=== PATIENT | male | born 1950 | race Caucasian/White ===

== ENCOUNTER 2017-08-03 12:46 | Emergency (ER) | payer OTHER, MEDICARE ==
--- NOTE | 2017-08-03 14:09 | EDM.PDOC ---
ED HPI GENERAL MEDICAL PROBLEM - General Chief Complaint: Upper Extremity Injury/Pain Stated Complaint: FELL AT HOME Time Seen by Provider: 08/03/17 13:24 Source of Information: Reports: Patient History Limitations: Reports: No Limitations - History of Present Illness INITIAL COMMENTS - FREE TEXT/NARRATIVE: History of present illness: Patient slipped on the ice this morning and landed on his right shoulder he complains of pain with anterior movement and lifting his right upper extremity. Denies Any numbness or tingling, he is able to move his arm posteriorly without difficulty or limitation Review of systems: As per history of present illness and below otherwise all systems reviewed and negative. Past medical history: As per history of present illness and as reviewed below otherwise noncontributory. Surgical history: As per history of present illness and as reviewed below otherwise noncontributory. Social history: No reported history of drug or alcohol abuse. Family history: As per history of present illness and as reviewed below otherwise noncontributory. Physical exam: General: Well developed, well nourished in NAD HEENT: Atraumatic, normocephalic, pupils reactive, negative for conjunctival pallor or scleral icterus, mucous membranes moist, throat clear, neck supple and no vertebral step-offs, nontender, trachea midline. Lungs: Clear to auscultation, breath sounds equal bilaterally, chest nontender. Heart: S1S2, regular, negative for clicks, rubs, or JVD. Abdomen: Soft, nondistended, nontender. Negative for masses or hepatosplenomegaly. Negative for costovertebral tenderness. Pelvis: Stable nontender. Genitourinary: Deferred. Rectal: Deferred. Extremities: No clavicular deformity or tenderness, Atraumatic, pain negative for cords or calf pain. Neurovascular unremarkable. Neuro: Awake, alert, oriented. Cranial nerves II through XII unremarkable. Cerebellum unremarkable. Motor and sensory unremarkable throughout. Exam nonfocal. Diagnostics: []X-ray shoulder negative for fracture dislocation positive for arthritis Therapeutics: []Patient declined pain meds Impression: []Right shoulder sprain Plan: []Arm sling ice, ibuprofen follow-up with orthopedics Definitive disposition and diagnosis as appropriate pending reevaluation and review of above. - Related Data Allergies Allergy/AdvReac Type Severity Reaction Status Date / Time No Known Allergies Allergy Verified 08/03/17 13:34 Home Meds: Home Meds Tamsulosin HCl 0.4 mg PO DAILY 08/03/17 [History] atorvaSTATin Calcium [Atorvastatin Calcium] 40 mg PO DAILY 08/03/17 [History] Past Medical History Cardiovascular History: Reports: High Cholesterol, Hypertension Genitourinary History: Reports: Prostate Disorder Social & Family History - Family History Family Medical History: Noncontributory - Tobacco Use Smoking Status *Q: Never Smoker - Caffeine Use Caffeine Use: Reports: Coffee - Recreational Drug Use Recreational Drug Use: No Review of Systems - Review of Systems Review Of Systems: See Below (See history of present illness) ED EXAM, GENERAL - Physical Exam Exam: See Below (See history of present illness) Course - Vital Signs Last Recorded V/S: Last Vital Signs Temp 98.1 F 08/03/17 13:36 Pulse 89 08/03/17 13:36 Resp 14 08/03/17 13:36 BP 135/113 H 08/03/17 13:36 Pulse Ox 95 08/03/17 13:36 Departure - Departure Time of Disposition: 14:14 Disposition: Home, Self-Care 01 Condition: Good Clinical Impression: Sprain of right shoulder Qualifiers: Encounter type: initial encounter Shoulder sprain type: unspecified sprain Qualified Code(s): S43.401A - Unspecified sprain of right shoulder joint, initial encounter - Discharge Information Referrals: PCP,None [Primary Care Provider] - Forms: ED Department Discharge Additional Instructions: The following information is given to patients seen in the emergency department who are being discharged to home. This information is to outline your options for follow-up care. We provide all patients seen in our emergency department with a follow-up referral. The need for follow-up, as well as the timing and circumstances, are variable depending upon the specifics of your emergency department visit. If you don't have a primary care physician on staff, we will provide you with a referral. We always advise you to contact your personal physician following an emergency department visit to inform them of the circumstance of the visit and for follow-up with them and/or the need for any referrals to a consulting specialist. The emergency department will also refer you to a specialist when appropriate. This referral assures that you have the opportunity for follow-up care with a specialist. All of these measure are taken in an effort to provide you with optimal care, which includes your follow-up. Under all circumstances we always encourage you to contact your private physician who remains a resource for coordinating your care. When calling for follow-up care, please make the office aware that this follow-up is from your recent emergency room visit. If for any reason you are refused follow-up, please contact the [facility] Emergency Department at and asked to speak to the emergency department charge nurse. Ice, Motrin, arm sling for comfort follow-up with orthopedic return if symptoms worsen or change [facility] [address] [place] [address], [address] [place] [address]
--- NOTE | 2017-08-03 14:12 | CR ---
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 No definite fracture or acute osseous abnormality. Bone mineralization appears normal.
== END 2017-08-03 14:24 | disposition home or self-care (01) ==
LOC: MW.ED 12:46
DX: S43.401A Unspecified sprain of right shoulder joint, initial encounter (principal); I10 Essential (primary) hypertension; E78.00 Pure hypercholesterolemia, unspecified; Z79.899 Other long term (current) drug therapy; W00.0XXA Fall on same level due to ice and snow, initial encounter; Y92.009 Unspecified place in unspecified non-institutional (private) residence as the place of occurrence of the external cause
CPT/HCPCS: 73030-26-RT; 73030-RT; 99283

== ENCOUNTER 2017-09-22 10:00 | Day surgery (SDC) | payer OTHER, MEDICARE ==
[~2017-09-22 10:00] MED LIST: Lactated Ringers 1,000 ML IV SCH; Lidocaine 2% 5 ML SDV ONE; Ondansetron 4 MG/2 ML SDV ONE; Propofol 200 MG/20 ML SDV ONE; fentaNYL 100 MCG/2 ML SDV ONE
--- NOTE | 2017-09-22 10:29 | PCM.PREANE ---
Preanesthetic Assessment - Anesthesia/Transfusion/Family Hx Anesthesia History: Prior Anesthesia Without Reaction Family History of Anesthesia Reaction: No Transfusion History: No Prior Transfusion(s) Intubation History: Unknown - Review of Systems General: No Symptoms Pulmonary: No Symptoms Cardiovascular: No Symptoms Gastrointestinal: Other (h/o colon cancer witj resection and radiation ') Neurological: No Symptoms Other: Reports: None - Physical Assessment O2 Sat by Pulse Oximetry: 98 Respiratory Rate: 16 Vital Signs: Last Vital Signs Temp 36.3 C 09/22/17 10:06 Pulse 64 09/22/17 10:06 Resp 16 09/22/17 10:06 BP 170/88 H 09/22/17 10:06 Pulse Ox 98 09/22/17 10:06 Height: 1.63 m Weight: 88.451 kg ASA Class: 2 Mental Status: Alert & Oriented x3 Airway Class: Mallampati = 2 Dentition: Reports: Normal Dentition Thyro-Mental Finger Breadths: 2 Mouth Opening Finger Breadths: 3 ROM/Head Extension: Limited/Partial Lungs: Clear to Auscultation, Normal Respiratory Effort Cardiovascular: Regular Rate, Regular Rhythm - Allergies Allergies/Adverse Reactions: Allergies Allergy/AdvReac Type Severity Reaction Status Date / Time pravastatin Allergy Dizziness Verified 09/19/17 13:06 - Blood Blood Available: No - Anesthesia Plan Pre-Op Medication Ordered: None - Acknowledgements Anesthesia Type Planned: MAC Pt an Appropriate Candidate for the Planned Anesthesia: Yes Alternatives and Risks of Anesthesia Discussed w Pt/Guardian: Yes Pt/Guardian Understands and Agrees with Anesthesia Plan: Yes PreAnesthesia Questionnaire HEENT History: Reports: Other (See Below) Other HEENT History: wears glasses Cardiovascular History: Reports: High Cholesterol, Hypertension Gastrointestinal History: Reports: Colon Polyp Genitourinary History: Reports: Prostate Disorder Musculoskeletal History: Reports: Other (See Below) (rt. shoulder pain) Endocrine/Metabolic History: Reports: Obesity/BMI 30+ Oncologic (Cancer) History: Reports: Colon - Past Surgical History Head Surgeries/Procedures: Reports: None GI Surgical History: Reports: Colon (2012 resection with radiation), Colonoscopy Other GI Surgeries/Procedures: colon resection for colon cancer - SUBSTANCE USE Smoking Status *Q: Former Smoker Days Per Week of Alcohol Use: 7 Number of Drinks Per Day: 1 Total Drinks Per Week: 7 Recreational Drug Use History: No - HOME MEDS Home Medications: Home Meds Tamsulosin HCl 0.4 mg PO DAILY 08/03/17 [History] atorvaSTATin Calcium [Atorvastatin Calcium] 20 mg PO BEDTIME 08/03/17 [History] Aspirin [[place] Aspirin] 81 mg PO DAILY 09/19/17 [History] Flaxseed Oil [Flax Oil] 1,000 mg PO DAILY 09/19/17 [History] Lisinopril 0.5 tab PO DAILY 09/19/17 [History] Multivitamin [Multivitamins] 1 tab PO DAILY 09/19/17 [History] Sildenafil [Viagra] 1 tab PO ASDIRECTED PRN 09/19/17 [History] - CURRENT (IN HOUSE) MEDS Current Meds: Current Medications Lactated Ringer's (Ringers, Lactated) 1,000 mls @ 125 mls/hr IV ASDIRECTED BLANCHE Last Admin: 09/22/17 10:11 Dose: 125 mls/hr Discontinued Medications Fentanyl (Sublimaze) Confirm Administered Dose 100 mcg .ROUTE .STK-MED ONE Stop: 09/22/17 08:29 Lidocaine (Xylocaine-Mpf 2%) Confirm Administered Dose 5 ml .ROUTE .STK-MED ONE Stop: 09/22/17 08:28 Ondansetron HCl (Zofran) Confirm Administered Dose 4 mg .ROUTE .STK-MED ONE Stop: 09/22/17 09:30 Propofol (Diprivan 20 Ml) Confirm Administered Dose 400 mg .ROUTE .STK-MED ONE Stop: 09/22/17 08:28
[2017-09-22] MEDS ORDERED: Lactated Ringers 1,000 ML IV SCH (12:30)
--- NOTE | 2017-09-22 12:34 | PCM.OPNOTE ---
- General Post-Op/Procedure Note Date of Surgery/Procedure: 09/22/17 Operative Procedure(s): Colonoscopy Pre Op Diagnosis: Personal history of rectal cancer Post-Op Diagnosis: No evidence of recurrent neoplasm. Sigmoid diverticulosis. Anesthesia Technique: MAC (ASA II) Primary Surgeon: Santos Aleman Condition: Good Free Text/Narrative:: Dictation [id number] CPT CODE 14515
--- NOTE | 2017-09-22 13:03 | PCM48HPAN ---
Post Anesthesia Note - EVALUATION WITHIN 48HRS OF ANESTHETIC Vital Signs in Normal Range: Yes Patient Participated in Evaluation: Yes Respiratory Function Stable: Yes Airway Patent: Yes Cardiovascular Function Stable: Yes Hydration Status Stable: Yes Pain Control Satisfactory: Yes Nausea and Vomiting Control Satisfactory: Yes Mental Status Recovered: Yes
--- NOTE | 2017-09-22 13:03 | PCM.POSTAN ---
POST ANESTHESIA ASSESSMENT - MENTAL STATUS Mental Status: Alert, Oriented - RESPIRATORY Respiratory Status: Respiratory Rate WNL, Airway Patent, O2 Saturation Stable - CARDIOVASCULAR CV Status: Pulse Rate WNL, Blood Pressure Stable - GASTROINTESTINAL GI Status: No Symptoms - POST OP HYDRATION Hydration Status: Adequate & Stable
--- NOTE | 2017-09-25 08:35 | OR ---
SURGEON: Santos Aleman M.D. DATE OF PROCEDURE: 09/22/2017 OPERATION PERFORMED: Colonoscopy. ANESTHESIA: MAC. ASA CLASSIFICATION: II. PREOPERATIVE DIAGNOSIS: Personal history of rectal cancer. POSTOPERATIVE DIAGNOSIS: Sigmoid diverticulosis. DESCRIPTION OF PROCEDURE: The patient was taken to the endoscopy room, positioned on the endoscopy table in the left lateral decubitus position. Time-out was called for appropriate identification of the patient and procedure. Monitored anesthesia care was provided. The colonoscope was inserted into the rectum and advanced without difficulty to the cecum, which was identified by internal landmarks and external pressure. The colonoscope was retroflexed in the cecum to visualize the ascending colon from below, then straightened and slowly withdrawn. The cecum, ascending colon, hepatic flexure, transverse colon, and splenic flexure showed no tumors, polyps, diverticula, or angiodysplastic changes. There was no evidence of recurrent malignant disease. The sigmoid colon demonstrates numerous diverticula. No stricture, spasm, or bleeding was noted. The anastomosis was easily seen as the scope was withdrawn. The anastomosis was widely patent and shows no evidence of recurrent disease. The colonoscope was withdrawn to the distal rectum and retroflexed to visualize the anal orifice from above. No tumors, polyps, or acute hemorrhoidal changes were noted. The colonoscope was then straightened, the rectum aspirated, and the colonoscope removed. The patient tolerated the procedure well and was taken to recovery room in satisfactory condition. MANDO RIVERS /[id number]
== END 2017-09-22 13:06 | disposition home or self-care (01) ==
LOC: MW.SDS 10:00
PROVIDERS: ATTEND Surgery
DX: Z12.11 Encounter for screening for malignant neoplasm of colon (principal); I10 Essential (primary) hypertension; N42.9 Disorder of prostate, unspecified; E78.00 Pure hypercholesterolemia, unspecified; E66.9 Obesity, unspecified; Z68.33 Body mass index [BMI] 33.0-33.9, adult; Z92.21 Personal history of antineoplastic chemotherapy; Z88.8 Allergy status to other drugs, medicaments and biological substances; Z79.82 Long term (current) use of aspirin; Z79.899 Other long term (current) drug therapy; Z86.010 Personal history of colon polyps; Z87.891 Personal history of nicotine dependence; Z90.49 Acquired absence of other specified parts of digestive tract; Z85.038 Personal history of other malignant neoplasm of large intestine
CPT/HCPCS: 45378; J3010; J7120; 00812; J2405; J2704

== ENCOUNTER 2019-09-08 19:07 | Observation (INO) | payer OTHER, MEDICARE ==
[2019-09-08 20:03] LABS: BLOOD UREA NITROGEN,BUN 19 mg/dL (7.0-18.0); CARBON DIOXIDE,CO2 23.2 mmol/L (21.0-32.0); CHLORIDE,CL 101 mmol/L (98-107); GLUCOSE RANDOM 97 mg/dL (74-106); POTASSIUM,K 3.5 mmol/L (3.5-5.1); SODIUM,NA 138 mmol/L (136-148)
[2019-09-08] MEDS ORDERED: Sodium Chloride 0.9% 1,000 ML IV ONE (20:51)
--- NOTE | 2019-09-08 21:59 | EDM.PDOC ---
ED HPI GENERAL MEDICAL PROBLEM - General Chief Complaint: ENT Problem Stated Complaint: NOSE BLEED Time Seen by Provider: 09/08/19 19:14 - History of Present Illness INITIAL COMMENTS - FREE TEXT/NARRATIVE: HPI 69-year-old male takes aspirin daily presents for evaluation of right nare spontaneous epistaxis. Denies similar prior symptoms, no nasal trauma. Bleeding is been present for ~20 minutes. ROS with no recent constitutional symptoms. Exam HR 114, RR 18, BP 156 and 93, T 36.6C, SaO2 95% on room air. Gen: Pleasant, non-toxic appearing, resting comfortably HEENT: active bleeding from right nare, no bleeding from left naris appreciated , otherwise NC, AT, PEERL, EOMI. Resp: Clear to auscultation bilaterally. Unlabored respirations with a normal work of breathing. Card: Regular rate and rhythm. Extremities warm and well perfused. GI: Non-distended. : Deferred MSK: No visible deformities, strength and tone without visually appreciable deficit. Neuro: alert and oriented 3, no facial asymmetry, vision and hearing WNL. Heme/Lymph: Deferred Skin: Normal color with no visible lesions (other than noted above). Psych: Mood and affect appropriate. Labs: WBC 11.6, PLT 334, HB 15.8, INR 0.95, PTT 26.8, sodium 138, potassium 3.5. MDM Previous chart, nursing note, and vitals reviewed. A: 69-year-old male takes aspirin daily presents for evaluation of right nare spontaneous epistaxis. DDx & Evaluation: patient with notable ongoing right nare active bleeding, appears to be anterior. Clot was expressed by patient, nare was irrigated with 20 mL NS and a 5.5 cm anterior Rhino Rocket was placed with hemostasis. Patient with persistent tachycardia (initially attributed to agitation), remained present with rest. Labs ordered. 1 L NS given. Approximately 20 minutes later the patient had sudden onset left nare bleeding. Clot was expressed by patient, nare irrigated with 20 ML NS and a 5.5 cm anterior Rhino Rocket soaked in TXA was placed with hemostasis. Approximately 20 minutes after her left nare plaque , repeat examination, no further bleeding. Patient given a 2nd L IV fluids and admitted for observation. No identifiable posterior bleeding. No identifiable coagulopathies. Impression: bilateral epistaxis, tachycardia. - Related Data Allergies Allergy/AdvReac Type Severity Reaction Status Date / Time pravastatin Allergy Dizziness Verified 09/08/19 19:15 Home Meds: Home Meds Tamsulosin HCl 0.4 mg PO DAILY 08/03/17 [History] atorvaSTATin Calcium [Atorvastatin Calcium] 20 mg PO BEDTIME 08/03/17 [History] Aspirin [[place] Aspirin EC] 81 mg PO DAILY 09/19/17 [History] Lisinopril 0.5 tab PO DAILY 09/19/17 [History] Multivitamin [Multivitamins] 1 tab PO DAILY 09/19/17 [History] Sildenafil [Viagra] 1 tab PO ASDIRECTED PRN 09/19/17 [History] Past Medical History HEENT History: Reports: Other (See Below) Other HEENT History: wears glasses Cardiovascular History: Reports: High Cholesterol, Hypertension Gastrointestinal History: Reports: Colon Polyp Genitourinary History: Reports: Prostate Disorder Musculoskeletal History: Reports: Other (See Below) Endocrine/Metabolic History: Reports: Obesity/BMI 30+ Oncologic (Cancer) History: Reports: Colon - Infectious Disease History Infectious Disease History: Reports: None - Past Surgical History Head Surgeries/Procedures: Reports: None GI Surgical History: Reports: Colon, Colonoscopy Other GI Surgeries/Procedures: colon resection for colon cancer Social & Family History - Family History Family Medical History: Noncontributory - Tobacco Use Smoking Status *Q: Never Smoker - Caffeine Use Caffeine Use: Reports: Coffee - Recreational Drug Use Recreational Drug Use: No ED ROS GENERAL - Review of Systems Review Of Systems: See Below ED EXAM, GENERAL - Physical Exam Exam: See Below Course - Vital Signs Last Recorded V/S: Last Vital Signs Temp 36.6 C 09/08/19 19:17 Pulse 111 H 09/08/19 21:33 Resp 16 09/08/19 21:33 BP 132/83 09/08/19 21:33 Pulse Ox 97 09/08/19 21:33 - Orders/Labs/Meds Orders: Active Orders 24 hr Category Date Time Status Sodium Chloride 0.9% [Normal Saline] 1,000 ml Med 09/08/19 21:57 Ordered IV .Bolus Tranexamic Acid [Cyklokapron] Med 09/08/19 19:39 Once 1,000 mg .XX ONETIME ONE Medication Orders Sodium Chloride (Normal Saline) 1,000 mls @ 1,000 mls/hr IV .Bolus ONE Stop: 09/08/19 22:56 Tranexamic Acid (Cyklokapron) 1,000 mg .XX ONETIME ONE Stop: 09/09/19 03:48 Last Admin: 09/08/19 20:20 Dose: 1,000 mg Labs: Laboratory Tests 09/08/19 09/08/19 09/08/19 Range/Units 19:20 19:20 19:20 WBC 11.61 H (4.0-11.0) K/uL RBC 4.79 (4.50-5.90) M/uL Hgb 15.8 (13.0-17.0) g/dL Hct 45.2 (38.0-50.0) % MCV 94.4 (80.0-98.0) fL MCH 33.0 H (27.0-32.0) pg MCHC 35.0 (31.0-37.0) g/dL RDW Std Deviation 45.3 (28.0-62.0) fl RDW Coeff of Jose 13 (11.0-15.0) % Plt Count 334 (150-400) K/uL MPV 9.40 (7.40-12.00) fL Neut % (Auto) 48.2 (48.0-80.0) % Lymph % (Auto) 37.6 (16.0-40.0) % [place] % (Auto) 10.6 (0.0-15.0) % Eos % (Auto) 3.3 (0.0-7.0) % Baso % (Auto) 0.3 (0.0-1.5) % Neut # (Auto) 5.6 (1.4-5.7) K/uL Lymph # (Auto) 4.4 H (0.6-2.4) K/uL [place] # (Auto) 1.2 H (0.0-0.8) K/uL Eos # (Auto) 0.4 (0.0-0.7) K/uL Baso # (Auto) 0.0 (0.0-0.1) K/uL Nucleated RBC % 0.0 /100WBC Nucleated RBCs # 0 K/uL INR 0.95 APTT 26.8 (18.6-31.3) SEC Sodium 138 (136-148) mmol/L Potassium 3.5 (3.5-5.1) mmol/L Chloride 101 (98-107) mmol/L Carbon Dioxide 23.2 (21.0-32.0) mmol/L BUN 19 H (7.0-18.0) mg/dL Creatinine 0.9 (0.8-1.3) mg/dL Est Cr Clr Drug Dosing 63.04 mL/min Estimated GFR (MDRD) > 60.0 ml/min Glucose 97 (74-106) mg/dL Calcium 8.9 (8.5-10.1) mg/dL Blood Type Antibody Screen 09/08/19 Range/Units 19:59 WBC (4.0-11.0) K/uL RBC (4.50-5.90) M/uL Hgb (13.0-17.0) g/dL Hct (38.0-50.0) % MCV (80.0-98.0) fL MCH (27.0-32.0) pg MCHC (31.0-37.0) g/dL RDW Std Deviation (28.0-62.0) fl RDW Coeff of Jose (11.0-15.0) % Plt Count (150-400) K/uL MPV (7.40-12.00) fL Neut % (Auto) (48.0-80.0) % Lymph % (Auto) (16.0-40.0) % [place] % (Auto) (0.0-15.0) % Eos % (Auto) (0.0-7.0) % Baso % (Auto) (0.0-1.5) % Neut # (Auto) (1.4-5.7) K/uL Lymph # (Auto) (0.6-2.4) K/uL [place] # (Auto) (0.0-0.8) K/uL Eos # (Auto) (0.0-0.7) K/uL Baso # (Auto) (0.0-0.1) K/uL Nucleated RBC % /100WBC Nucleated RBCs # K/uL INR APTT (18.6-31.3) SEC Sodium (136-148) mmol/L Potassium (3.5-5.1) mmol/L Chloride (98-107) mmol/L Carbon Dioxide (21.0-32.0) mmol/L BUN (7.0-18.0) mg/dL Creatinine (0.8-1.3) mg/dL Est Cr Clr Drug Dosing mL/min Estimated GFR (MDRD) ml/min Glucose (74-106) mg/dL Calcium (8.5-10.1) mg/dL Blood Type A POSITIVE Antibody Screen NEGATIVE Meds: Medications Generic Name Dose Route Start Last Admin Trade Name Freq PRN Reason Stop Dose Admin Sodium Chloride 1,000 mls @ 1,000 mls/hr 09/08/19 21:57 Normal Saline IV 09/08/19 22:56 .Bolus ONE Tranexamic Acid 1,000 mg 09/08/19 19:39 09/08/19 20:20 Cyklokapron .XX 09/09/19 03:48 1,000 mg ONETIME ONE Administration Discontinued Medications Generic Name Dose Route Start Last Admin Trade Name Freq PRN Reason Stop Dose Admin Sodium Chloride 1,000 mls @ 1,000 mls/hr 09/08/19 20:51 09/08/19 20:55 Normal Saline IV 09/08/19 21:50 1,000 mls/hr .Bolus ONE Administration Departure - Departure Time of Disposition: 21:58 Disposition: Admitted As Inpatient 64 Clinical Impression: Epistaxis - Discharge Information Referrals: Abdi Durham MD [Primary Care Provider] - Sepsis Event Note - Evaluation Sepsis Screening Result: No Definite Risk - Focused Exam Vital Signs: Vital Signs Temp Pulse Resp BP Pulse Ox 09/08/19 21:33 111 H 16 132/83 97 09/08/19 20:56 116 H 15 133/85 98 09/08/19 20:25 126 H 14 133/85 97 09/08/19 19:17 36.6 C 114 H 18 156/93 H 95 Date Exam was Performed: 09/08/19 Time Exam was Performed: 21:58 - My Orders Last 24 Hours: My Active Orders 09/08/19 19:39 Tranexamic Acid [Cyklokapron] 1,000 mg .XX ONETIME ONE 09/08/19 21:57 Sodium Chloride 0.9% [Normal Saline] 1,000 ml IV .Bolus - Assessment/Plan Last 24 Hours: My Active Orders 09/08/19 19:39 Tranexamic Acid [Cyklokapron] 1,000 mg .XX ONETIME ONE 09/08/19 21:57 Sodium Chloride 0.9% [Normal Saline] 1,000 ml IV .Bolus
[2019-09-08] MEDS ORDERED: Albuterol/Ipratropium 3.0-0.5 MG/3 ML Neb Soln NEB PRN (22:38)
[2019-09-08] MEDS ORDERED: Potassium Chloride 10% 20 MEQ/15 ML Soln 30 ML UD Cup PO ONE (23:14)
[2019-09-09] MEDS: Sodium Chloride 0.9% 1,000 ML IV ONE ×2 (00:02→00:25)
[2019-09-09] MEDS: Sodium Chloride 0.9% 1,000 ML IV SCH ×2 (00:07→08:13)
[2019-09-09] MEDS ORDERED: Tranexamic Acid 1,000 MG in Sodium Chloride 0.9% 100 ML IV ONE (01:18)
[2019-09-09] MEDS ORDERED: LORazepam 2 MG/ML SDV IVPUSH PRN (02:51)
--- NOTE | 2019-09-09 09:30 | PCM.HP.2 ---
H&P History of Present Illness - General Date of Service: 09/09/19 Admit Problem/Dx: Admission Diagnosis/Problem Admission Diagnosis/Problem Epistaxis - History of Present Illness Initial Comments - Free Text/Narative: Patient is a 69-year-old male with a significant past medical history of hypercholesterolemia, hypertension, BPH, daily baby aspirin user and history of colon Cancer status post resection/chemotherapy: Presenting last night with non- remitting epistaxis; initially from the right nare but had progressed into the left nare as well. Denies any fevers, chills, body aches, nasal trauma. Only thing significant in the recent history was doing some woodwork and cutting lumber without wearing a mask but this was 1 week ago; otherwise patient denies any other symptoms or concerns at this time. ED course: Rhino Rocket dipped and TXA applied to nares mildly tachycardic. ; Given 2 L normal saline bolus Rhino Rocket in situ currently. Bedside: Overnight patient had spat up some blood clots; denies any fevers, chills, body aches denies any postnasal drip/bleeding. Rhino Rocket in situ no other discomfort at this current time; - Related Data Allergies/Adverse Reactions: Allergies Allergy/AdvReac Type Severity Reaction Status Date / Time pravastatin Allergy Dizziness Verified 09/08/19 23:09 Home Medications: Home Meds atorvaSTATin Calcium [Atorvastatin Calcium] 20 mg PO BEDTIME 08/03/17 [History] Lisinopril 0.5 tab PO DAILY 09/19/17 [History] Multivitamin [Multivitamins] 1 tab PO DAILY 09/19/17 [History] Sildenafil [Viagra] 1 tab PO ASDIRECTED PRN 09/19/17 [History] Finasteride 5 mg PO DAILY 09/08/19 [History] Past Medical History HEENT History: Reports: Other (See Below) Other HEENT History: wears glasses Cardiovascular History: Reports: High Cholesterol, Hypertension Gastrointestinal History: Reports: Colon Polyp, Diverticulosis Genitourinary History: Reports: BPH Musculoskeletal History: Reports: Other (See Below) Endocrine/Metabolic History: Reports: Obesity/BMI 30+ Oncologic (Cancer) History: Reports: Colon - Infectious Disease History Infectious Disease History: Reports: Chicken Pox - Past Surgical History Head Surgeries/Procedures: Reports: None GI Surgical History: Reports: Colon, Colonoscopy Other GI Surgeries/Procedures: colon resection for colon cancer Musculoskeletal Surgical History: Reports: Other (See Below) Other Musculoskeletal Surgeries/Procedures:: right reverse shoulder sx Social & Family History - Family History Family Medical History: Noncontributory - Tobacco Use Smoking Status *Q: Former Smoker Used Tobacco, but Quit: Yes Month/Year Tobacco Last Used: 1970 - Caffeine Use Caffeine Use: Reports: Coffee - Alcohol Use Days Per Week of Alcohol Use: 7 Number of Drinks Per Day: 4 Total Drinks Per Week: 28 Date of Last Drink: 09/08/19 - Recreational Drug Use Recreational Drug Use: No H&P Review of Systems - Review of Systems: Review Of Systems: See Below General: Reports: No Symptoms HEENT: Reports: Other (epsitaxis improved ). Denies: Post Nasal Drip, Sinus Congestion, Sore Throat Cardiovascular: Reports: No Symptoms Gastrointestinal: Reports: No Symptoms Genitourinary: Reports: No Symptoms Musculoskeletal: Reports: No Symptoms Psychiatric: Reports: No Symptoms Neurological: Reports: No Symptoms Hematologic/Lymphatic: Denies: Anemia, Easy Bleeding, Easy Bruising Exam - Exam Exam: See Below - Vital Signs Vital Signs: Last Vital Signs Temp 97.6 F 09/09/19 07:45 Pulse 90 09/09/19 07:45 Resp 18 09/09/19 07:45 BP 167/88 H 09/09/19 07:45 Pulse Ox 98 09/09/19 07:45 Weight: 175 lb - Exam General: Alert, Oriented HEENT: EOMI, Other (rhino rockets in-situ w/ dried blood around nare; some small blood noticed in posterior pharynx; non-obstructing) Lungs: Clear to Auscultation, Normal Respiratory Effort Cardiovascular: Regular Rate, Regular Rhythm GI/Abdominal Exam: Soft, Non-Tender Back Exam: Full Range of Motion Skin: Warm, Dry, Intact Neuro Extensive - Mental Status: Alert, Oriented x3 Neuro Extensive - Motor, Sensory, Reflexes: CN II-XII Intact Psychiatric: Alert, Normal Mood - Patient Data Lab Results Last 24 hrs: Laboratory Results - last 24 hr 09/08/19 09/08/19 09/08/19 Range/Units 19:20 19:20 19:20 WBC 11.61 H (4.0-11.0) K/uL RBC 4.79 (4.50-5.90) M/uL Hgb 15.8 (13.0-17.0) g/dL Hct 45.2 (38.0-50.0) % MCV 94.4 (80.0-98.0) fL MCH 33.0 H (27.0-32.0) pg MCHC 35.0 (31.0-37.0) g/dL RDW Std Deviation 45.3 (28.0-62.0) fl RDW Coeff of Jose 13 (11.0-15.0) % Plt Count 334 (150-400) K/uL MPV 9.40 (7.40-12.00) fL Neut % (Auto) 48.2 (48.0-80.0) % Lymph % (Auto) 37.6 (16.0-40.0) % [place] % (Auto) 10.6 (0.0-15.0) % Eos % (Auto) 3.3 (0.0-7.0) % Baso % (Auto) 0.3 (0.0-1.5) % Neut # (Auto) 5.6 (1.4-5.7) K/uL Lymph # (Auto) 4.4 H (0.6-2.4) K/uL [place] # (Auto) 1.2 H (0.0-0.8) K/uL Eos # (Auto) 0.4 (0.0-0.7) K/uL Baso # (Auto) 0.0 (0.0-0.1) K/uL Nucleated RBC % 0.0 /100WBC Nucleated RBCs # 0 K/uL INR 0.95 APTT 26.8 (18.6-31.3) SEC Sodium 138 (136-148) mmol/L Potassium 3.5 (3.5-5.1) mmol/L Chloride 101 (98-107) mmol/L Carbon Dioxide 23.2 (21.0-32.0) mmol/L BUN 19 H (7.0-18.0) mg/dL Creatinine 0.9 (0.8-1.3) mg/dL Est Cr Clr Drug Dosing 63.04 mL/min Estimated GFR (MDRD) > 60.0 ml/min Glucose 97 (74-106) mg/dL Calcium 8.9 (8.5-10.1) mg/dL Magnesium (1.8-2.4) mg/dL Blood Type Antibody Screen 09/08/19 09/08/19 09/09/19 Range/Units 19:20 19:59 05:40 WBC 10.83 (4.0-11.0) K/uL RBC 4.16 L (4.50-5.90) M/uL Hgb 13.1 (13.0-17.0) g/dL Hct 39.2 (38.0-50.0) % MCV 94.2 (80.0-98.0) fL MCH 31.5 (27.0-32.0) pg MCHC 33.4 (31.0-37.0) g/dL RDW Std Deviation 45.9 (28.0-62.0) fl RDW Coeff of Jose 13 (11.0-15.0) % Plt Count 303 (150-400) K/uL MPV 9.20 (7.40-12.00) fL Neut % (Auto) 66.1 (48.0-80.0) % Lymph % (Auto) 22.9 (16.0-40.0) % [place] % (Auto) 8.9 (0.0-15.0) % Eos % (Auto) 1.8 (0.0-7.0) % Baso % (Auto) 0.3 (0.0-1.5) % Neut # (Auto) 7.2 H (1.4-5.7) K/uL Lymph # (Auto) 2.5 H (0.6-2.4) K/uL [place] # (Auto) 1.0 H (0.0-0.8) K/uL Eos # (Auto) 0.2 (0.0-0.7) K/uL Baso # (Auto) 0.0 (0.0-0.1) K/uL Nucleated RBC % 0.0 /100WBC Nucleated RBCs # 0 K/uL INR APTT (18.6-31.3) SEC Sodium (136-148) mmol/L Potassium (3.5-5.1) mmol/L Chloride (98-107) mmol/L Carbon Dioxide (21.0-32.0) mmol/L BUN (7.0-18.0) mg/dL Creatinine (0.8-1.3) mg/dL Est Cr Clr Drug Dosing mL/min Estimated GFR (MDRD) ml/min Glucose (74-106) mg/dL Calcium (8.5-10.1) mg/dL Magnesium 2.2 (1.8-2.4) mg/dL Blood Type A POSITIVE Antibody Screen NEGATIVE Result Diagrams: 09/09/19 05:40 09/08/19 19:20 Sepsis Event Note - Evaluation Sepsis Screening Result: No Definite Risk - Focused Exam Vital Signs: Vital Signs Temp Pulse Resp BP Pulse Ox 09/09/19 07:45 97.6 F 90 18 167/88 H 98 09/09/19 03:16 97.5 F 98 16 159/93 H 95 09/08/19 23:00 98.9 F 108 H 16 135/73 97 09/08/19 21:33 111 H 16 132/83 97 Date Exam was Performed: 09/09/19 Time Exam was Performed: 12:57 Problem List Initiated/Reviewed/Updated: Yes Orders Last 24hrs: Active Orders 24 hr Category Date Time Status Admission Status [Patient Status] [ADT] Stat ADT 09/08/19 22:16 Active Ambulate [RC] ASDIRECTED Care 09/08/19 22:38 Active Antiembolic Devices [RC] PER UNIT ROUTINE Care 09/08/19 22:39 Active CIWAA Assessment [RC] Q4H Care 09/09/19 01:57 Active Oxygen Therapy [RC] PRN Care 09/08/19 22:38 Active RT Aerosol Therapy [RC] ASDIRECTED Care 09/08/19 23:11 Active Telemetry Monitoring [Cardiac Monitoring] [RC] Q8H Care 09/08/19 23:07 Active VTE/DVT Education [RC] PER UNIT ROUTINE Care 09/08/19 22:38 Active Vital Signs [RC] Q4H Care 09/08/19 22:38 Active Heart Healthy Diet [DIET] Diet 09/09/19 Breakfast Active Albuterol/Ipratropium [DuoNeb 3.0-0.5 MG/3 ML] Med 09/08/19 22:38 Active 3 ml NEB Q4HRRT PRN LORazepam [Ativan] Med 09/09/19 02:51 Active See Protocol IVPUSH Q4H PRN Sodium Chloride 0.9% [Normal Saline] 1,000 ml Med 09/08/19 22:45 Active IV ASDIRECTED atorvaSTATin [Lipitor] Med 09/09/19 21:00 Active 20 mg PO BEDTIME Sequential Compression Device [OM.PC] Per Unit Routine Oth 09/08/19 22:39 Ordered Medication Orders Albuterol/Ipratropium (Duoneb 3.0-0.5 Mg/3 Ml) 3 ml NEB Q4HRRT PRN PRN Reason: Shortness Of Breath/wheezing Atorvastatin Calcium (Lipitor) 20 mg PO BEDTIME BLANCHE Sodium Chloride (Normal Saline) 1,000 mls @ 125 mls/hr IV ASDIRECTED BLANCHE Last Admin: 09/09/19 08:13 Dose: 125 mls/hr Infusion: 09/09/19 08:07 Dose: 125 mls/hr Admin: 09/09/19 00:07 Dose: 125 mls/hr Lorazepam (Ativan) 0 mg IVPUSH Q4H PRN; Protocol PRN Reason: Withdrawal Symptoms Assessment/Plan Comment:: Assessment: 1. Persistent epistaxis in pt. on ASA 2. PMH: Cholesterolemia, hypertension, BPH, history of colon cancer status post resection Plan Admit to observation. Full code. DVT prophylaxis SCDs. GI prophylax pantoprazole 40 1. Epistaxis; remove Rhino Rocket this a.m. and reevaluate; may asked patient to hold aspirin in the interim; if active bleeding is still seen patient will need to be seen by ENT for cauterization. Patient is not on any other anticoagulant at this time nor denies any family history of platelet or coagulation disorder. 2. Continue home medications except aspirin Patient understood plan. Reassessment : removed nasal packing; noticed small area of bleeding at medial aspect of right nare but non-emergent; pt. stable. ; changed nasal packing. Discussed case with nursing staff of Dr Matos of [place], [place]; appointment made for 1pm this afternoon; pt. will proceed directly to appointment; pt. vitals and labs stable at discharge. pt. expressed understanding. Advised pt. to control BP w/ PCP and to discontinue ASA 81 until seen by PCP
[2019-09-09] MEDS ORDERED: Finasteride 5 MG Tab PO SCH (12:00)
[2019-09-09] MEDS ORDERED: Lisinopril 5 MG Tab PO SCH (12:00)
[2019-09-09] MEDS ORDERED: atorvaSTATin 20 MG Tab PO SCH (21:00)
== END 2019-09-09 12:40 | disposition home or self-care (01) ==
LOC: MW.ED 19:07 → MW.MS 21:59
PROVIDERS: ADMIT Student in an Organized Health Care Education/Training Program; ATTEND Student in an Organized Health Care Education/Training Program
DX: R04.0 Epistaxis (principal); E78.00 Pure hypercholesterolemia, unspecified; I10 Essential (primary) hypertension; N40.0 Benign prostatic hyperplasia without lower urinary tract symptoms; E66.9 Obesity, unspecified; Z79.82 Long term (current) use of aspirin; Z88.8 Allergy status to other drugs, medicaments and biological substances; Z79.899 Other long term (current) drug therapy; Z85.038 Personal history of other malignant neoplasm of large intestine; Z90.49 Acquired absence of other specified parts of digestive tract; Z87.891 Personal history of nicotine dependence; Z68.30 Body mass index [BMI] 30.0-30.9, adult
CPT/HCPCS: 36415; 80048; 83735; 85025; 85610; 85730; 86850; 86900; 86901; A9270; J7030; J7050; 99284-25

== ENCOUNTER 2019-09-23 21:14 | Emergency (ER) | payer OTHER, MEDICARE ==
--- NOTE | 2019-09-23 21:35 | EDM.PDOC ---
ED HPI GENERAL MEDICAL PROBLEM - General Chief Complaint: ENT Problem Stated Complaint: NOSE BLEED Time Seen by Provider: 09/23/19 21:16 Source of Information: Reports: Patient History Limitations: Reports: No Limitations - History of Present Illness INITIAL COMMENTS - FREE TEXT/NARRATIVE: HISTORY OF PRESENT ILLNESS: Patient is a 69-year-old male who presents with spontaneous epistaxis which started approximately 15 minutes prior to arrival. Similar episode earlier this month that required Rhino Rocket with TXA. Patient denies being on any anticoagulants. Was previously on aspirin which he has since discontinued. Denies any chest pain dyspnea abdominal pain or syncope. No fevers or chills. No rash or neck stiffness. Patient has a history of hypertension. No recent trauma or falls. Exacerbating or alleviating factors. REVIEW OF SYSTEMS: Other than the symptoms associated with the present events, the following is reported with regard to recent health: General: (-) fever. HENT: (-) congestion. Respiratory: (-) cough. Cardiovascular: (-) chest pain. GI: (-) abdominal pain. : (-) urinary complaints. Musculoskeletal: (-) other aches or pains. Endocrine: (-) generalized weakness. Neurological: (-) localized weakness. Skin: (-) rash PAST MEDICAL HISTORY: reviewed as per nursing notes SOCIAL HISTORY: reviewed as per nursing notes, MEDICATIONS: Per nurse's note ALLERGIES: Per nurse's note, reviewed by me PHYSICAL EXAMINATION: GENERALIZED APPEARANCE: well developed, well nourished in mild distress VITAL SIGNS: Per nurse's note, reviewed by me SKIN: Warm, dry; (-) cyanosis; (-) rash. HEAD: (-) scalp swelling, (-) tenderness. EYES: (-) conjunctival pallor, (-) scleral icterus. ENMT: (-) stridor; mucous membranes moist. active bleeding bilateral nares. septum intact. NECK: (-) tenderness, (-) stiffness, CHEST AND RESPIRATORY: (-) rales, (-) rhonchi, (-) wheezes; breath sounds equal bilaterally. HEART AND CARDIOVASCULAR: (-) irregularity; (-) murmur, (-) gallop. normal rate at time of my evaluation ABDOMEN AND GI: Soft; (-) tenderness, (-) guarding, (-) rebound, (-) palpable masses, EXTREMITIES: (-) deformity, (-) edema. NEURO AND PSYCH: Alert. Cranial nerves grossly intact; strength symmetric. gait steady DIAGNOSTICS: CBC, BMP, INR reviewed by myself: INR 0.98, Hg 13.9, Plt 341 EMERGENCY DEPARTMENT COURSE AND TREATMENT: Patient's condition improved during Emergency Department evaluation. Pressure applied with nasal clip with resolution of all bleeding. On reevaluation, no bleeding in posterior pharynx, no bleeding in nares. Hemostasis achieved. Hemodynamically stable. Pt observed in ED for over 1 hour and had no return of epistaxis. Requesting discharge to home. To return immediately with any new or worsening symptoms, otherwise to follow up with his ENT physician in [place] tomorr morning PLAN AND FOLLOW-UP: Patient received written and verbal instructions regarding this condition. Return to ED immediately with any new or worsening symptoms. Follow up to be arranged by patient/ with pcp in 1-2 days for further evaluation. Given discharge precautions. Patient and his expressed verbal understanding. - Related Data Allergies Allergy/AdvReac Type Severity Reaction Status Date / Time pravastatin Allergy Dizziness Verified 09/23/19 21:20 Home Meds: Home Meds atorvaSTATin Calcium [Atorvastatin Calcium] 20 mg PO BEDTIME 08/03/17 [History] Lisinopril 1 tab PO DAILY 09/19/17 [History] Multivitamin [Multivitamins] 1 tab PO DAILY 09/19/17 [History] Sildenafil [Viagra] 1 tab PO ASDIRECTED PRN 09/19/17 [History] Finasteride 5 mg PO DAILY 09/08/19 [History] Past Medical History HEENT History: Reports: Other (See Below) Other HEENT History: wears glasses Cardiovascular History: Reports: High Cholesterol, Hypertension Gastrointestinal History: Reports: Colon Polyp, Diverticulosis Genitourinary History: Reports: BPH Musculoskeletal History: Reports: Other (See Below) Psychiatric History: Reports: None Endocrine/Metabolic History: Reports: Obesity/BMI 30+ Hematologic History: Reports: None Oncologic (Cancer) History: Reports: Colon - Infectious Disease History Infectious Disease History: Reports: Chicken Pox - Past Surgical History Head Surgeries/Procedures: Reports: None GI Surgical History: Reports: Colon, Colonoscopy Other GI Surgeries/Procedures: colon resection for colon cancer Musculoskeletal Surgical History: Reports: Other (See Below) Other Musculoskeletal Surgeries/Procedures:: right reverse shoulder sx Social & Family History - Family History Family Medical History: Noncontributory - Tobacco Use Smoking Status *Q: Never Smoker - Caffeine Use Caffeine Use: Reports: Coffee - Recreational Drug Use Recreational Drug Use: No ED ROS ENT - Review of Systems Review Of Systems: See Below (see dictation) ED EXAM, ENT - Physical Exam Exam: See Below (see dictation) Course - Vital Signs Last Recorded V/S: Last Vital Signs Temp 97.8 F 09/23/19 21:21 Pulse 117 H 09/23/19 21:21 Resp 18 09/23/19 21:21 BP 168/98 H 09/23/19 21:21 Pulse Ox 98 09/23/19 21:21 - Orders/Labs/Meds Labs: Laboratory Tests 09/23/19 09/23/19 09/23/19 Range/Units 21:43 21:43 21:43 WBC 10.44 (4.0-11.0) K/uL RBC 4.11 L (4.50-5.90) M/uL Hgb 13.9 (13.0-17.0) g/dL Hct 37.9 L (38.0-50.0) % MCV 92.2 (80.0-98.0) fL MCH 33.8 H (27.0-32.0) pg MCHC 36.7 (31.0-37.0) g/dL RDW Std Deviation 43.3 (28.0-62.0) fl RDW Coeff of Jose 13 (11.0-15.0) % Plt Count 341 (150-400) K/uL MPV 8.90 (7.40-12.00) fL Neut % (Auto) 54.8 (48.0-80.0) % Lymph % (Auto) 32.0 (16.0-40.0) % [place] % (Auto) 10.0 (0.0-15.0) % Eos % (Auto) 2.8 (0.0-7.0) % Baso % (Auto) 0.4 (0.0-1.5) % Neut # (Auto) 5.7 (1.4-5.7) K/uL Lymph # (Auto) 3.3 H (0.6-2.4) K/uL [place] # (Auto) 1.0 H (0.0-0.8) K/uL Eos # (Auto) 0.3 (0.0-0.7) K/uL Baso # (Auto) 0.0 (0.0-0.1) K/uL Nucleated RBC % 0.0 /100WBC Nucleated RBCs # 0 K/uL INR 0.98 Sodium 138 (136-148) mmol/L Potassium 3.8 (3.5-5.1) mmol/L Chloride 103 (98-107) mmol/L Carbon Dioxide 24.9 (21.0-32.0) mmol/L BUN 15 (7.0-18.0) mg/dL Creatinine 0.9 (0.8-1.3) mg/dL Est Cr Clr Drug Dosing TNP Estimated GFR (MDRD) > 60.0 ml/min Glucose 124 H (74-106) mg/dL Calcium 9.1 (8.5-10.1) mg/dL Departure - Departure Time of Disposition: 22:35 Disposition: Home, Self-Care 01 Condition: Good Clinical Impression: Epistaxis - Discharge Information *PRESCRIPTION DRUG MONITORING PROGRAM REVIEWED*: Not Applicable *COPY OF PRESCRIPTION DRUG MONITORING REPORT IN PATIENT OSBALDO: Not Applicable Instructions: Nosebleed, Adult Referrals: Abdi Durham MD [Primary Care Provider] - 1 Day Forms: ED Department Discharge Additional Instructions: The following information is given to patients seen in the emergency department who are being discharged to home. This information is to outline your options for follow-up care. We provide all patients seen in our emergency department with a follow-up referral. The need for follow-up, as well as the timing and circumstances, are variable depending upon the specifics of your emergency department visit. If you don't have a primary care physician on staff, we will provide you with a referral. We always advise you to contact your personal physician following an emergency department visit to inform them of the circumstance of the visit and for follow-up with them and/or the need for any referrals to a consulting specialist. The emergency department will also refer you to a specialist when appropriate. This referral assures that you have the opportunity for follow-up care with a specialist. All of these measure are taken in an effort to provide you with optimal care, which includes your follow-up. Under all circumstances we always encourage you to contact your private physician who remains a resource for coordinating your care. When calling for follow-up care, please make the office aware that this follow-up is from your recent emergency room visit. If for any reason you are refused follow-up, please contact the [facility] Emergency Department at and asked to speak to the emergency department charge nurse. Sepsis Event Note - Evaluation Sepsis Screening Result: No Definite Risk - Focused Exam Vital Signs: Vital Signs Temp Pulse Resp BP Pulse Ox 09/23/19 21:21 97.8 F 117 H 18 168/98 H 98 Date Exam was Performed: 09/24/19 Time Exam was Performed: 00:47
[2019-09-23 22:05] LABS: BLOOD UREA NITROGEN,BUN 15 mg/dL (7.0-18.0); CARBON DIOXIDE,CO2 24.9 mmol/L (21.0-32.0); CHLORIDE,CL 103 mmol/L (98-107); GLUCOSE RANDOM 124 mg/dL (74-106); POTASSIUM,K 3.8 mmol/L (3.5-5.1); SODIUM,NA 138 mmol/L (136-148)
== END 2019-09-23 22:46 | disposition home or self-care (01) ==
LOC: MW.ED 21:14
DX: R04.0 Epistaxis (principal); I10 Essential (primary) hypertension; E66.9 Obesity, unspecified; Z79.899 Other long term (current) drug therapy; Z88.8 Allergy status to other drugs, medicaments and biological substances
CPT/HCPCS: 36415; 80048; 85025; 85610; 99283

== ENCOUNTER 2022-01-27 09:27 | Emergency (ER) | payer MEDICARE, OTHER ==
[2022-01-27] MEDS ORDERED: Ondansetron 4 MG/2 ML SDV IVPUSH ONE (09:36)
[2022-01-27] MEDS ORDERED: Sodium Chloride 0.9% 500 ML IV ONE (09:36)
[2022-01-27 10:53] LABS: BLOOD UREA NITROGEN,BUN 15 mg/dL (7.0-18.0); CARBON DIOXIDE,CO2 20.8 mmol/L (21.0-32.0); CHLORIDE,CL 104 mmol/L (98-107); GLUCOSE RANDOM 141 mg/dL (74-106); POTASSIUM,K 4.4 mmol/L (3.5-5.1); SODIUM,NA 138 mmol/L (136-148)
== END 2022-01-27 11:27 | disposition home or self-care (01) ==
LOC: MW.ED 09:27
DX: R42 Dizziness and giddiness (principal); R11.2 Nausea with vomiting, unspecified; E78.00 Pure hypercholesterolemia, unspecified; I10 Essential (primary) hypertension; E66.9 Obesity, unspecified; Z68.32 Body mass index [BMI] 32.0-32.9, adult; Z79.899 Other long term (current) drug therapy; Z20.822 Contact with and (suspected) exposure to COVID-19; Z88.8 Allergy status to other drugs, medicaments and biological substances
CPT/HCPCS: 36415; 80053; 83735; 84443; 84484; 85025; 93005; 96361; 96374; 99284; J2405; J7030; U0002; 93010

== ENCOUNTER 2022-11-18 07:53 | Day surgery (SDC) | payer OTHER, MEDICARE ==
[~2022-11-18 07:53] MED LIST changes: -Lidocaine 2% 5 ML SDV ONE; -Ondansetron 4 MG/2 ML SDV ONE; -fentaNYL 100 MCG/2 ML SDV ONE
[2022-11-18] MEDS ORDERED: Lactated Ringers 1,000 ML IV SCH (10:30)
== END 2022-11-18 10:56 | disposition home or self-care (01) ==
LOC: MW.SDS 07:53
PROVIDERS: ATTEND Surgery
DX: Z12.11 Encounter for screening for malignant neoplasm of colon (principal); K57.30 Diverticulosis of large intestine without perforation or abscess without bleeding; K63.5 Polyp of colon; I10 Essential (primary) hypertension; N40.0 Benign prostatic hyperplasia without lower urinary tract symptoms; E66.9 Obesity, unspecified; E78.00 Pure hypercholesterolemia, unspecified; Z68.34 Body mass index [BMI] 34.0-34.9, adult; Z86.010 Personal history of colon polyps; Z85.038 Personal history of other malignant neoplasm of large intestine; Z88.8 Allergy status to other drugs, medicaments and biological substances; Z79.899 Other long term (current) drug therapy; Z98.890 Other specified postprocedural states
CPT/HCPCS: 45378; J2704; J7120